=== PATIENT | female | born 2000 | race Caucasian/White ===

== ENCOUNTER 2022-03-16 13:35 | Emergency (ER) | payer OTHER ==
[2022-03-16] MEDS ORDERED: ROCURONIUM 50 MG/5 ML VIAL IV ONE (13:36)
[2022-03-16] MEDS ORDERED: NA CHLORIDE 0.9% 1,000 ML ONE ×4 (14:26→19:23)
[2022-03-16 14:54] LABS: Urine Blood Trace-lysed (Negative); Urine Glucose Negative (Negative); Urine Protein 2+ (Negative); Urine Specific Gravity 1.025 (1.005-1.030); Urine pH 5.5 (5.0-7.0)
[2022-03-16 14:55] LABS: Protime INR 1.26
[2022-03-16 15:09] LABS: Barbiturates NEGATIVE (NEGATIVE); Benzodiazepines NEGATIVE (NEGATIVE); Cocaine NEGATIVE (NEGATIVE); METHAMPHETAM NEGATIVE (NEGATIVE); Methadone NEGATIVE (NEGATIVE); Opiates NEGATIVE (NEGATIVE); Phencyclidine NEGATIVE (NEGATIVE); THC Cannibis POSITIVE (NEGATIVE)
[2022-03-16] MEDS ORDERED: ALBUTEROL 2.5 MG/3 ML NEB SOL ONE (15:09)
[2022-03-16] MEDS ORDERED: IPRATROPIUM BROM 0.5MG/2.5ML ONE (15:09)
--- NOTE | 2022-03-16 15:12 | RAD REPORT ---
EXAM DESCRIPTION: RAD - Chest Single View - 03/16/2022 2:48 pm CLINICAL HISTORY: DYSPNEA COMPARISON: None TECHNIQUE: AP portable chest image was obtained 03/16/2022 2:48 pm . FINDINGS: Dense opacification of the mid and lower right lung field is present obscuring the hemidia phragm and right heart border. Large right pleural effusion is present. There could be mass, consolid ation or a combination. Consolidation in the mid and lower left lung field is present as well. Heart and vasculature are normal. No pneumothorax. No acute bony abnormality seen. No acute aortic fi ndings suspected. IMPRESSION: Dense opacification of the lower right lung field probably a combination of consolidated pneumonia and large pleural effusion. Underlying mass lesion would not be likely in a patient this a ge. Prominent mid and lower left lung field opacification likely pneumonia.
[2022-03-16 15:33] LABS: Albumin 1.7 g/dL (3.4-5.0); Bilirubin Direct 2.1 mg/dL (0-0.2); Bilirubin Total 2.5 mg/dL (0.2-1.0); Potassium 3.3 mmol/L (3.5-5.1); Protein, Total 5.1 g/dL (6.4-8.2)
[2022-03-16 15:43] LABS: SARS-COV-2 RT PCR NEGATIVE (NEGATIVE)
[2022-03-16] MEDS ORDERED: VANCOMYCIN 1 GM/VIAL ONE (15:47)
[2022-03-16] MEDS ORDERED: PIPERACIL/TAZO 3.375 GM VIAL IV ONE (15:47)
[2022-03-16] MEDS ORDERED: NA CHLORIDE 0.9% 250 ML ONE (15:47)
[2022-03-16] MEDS ORDERED: NA CHLORIDE 0.9% 100 ML IV ONE (15:47)
[2022-03-16 16:13] LABS: Absolute Lymphocytes (CBC) 0.8 K/uL (0.7-4.9); Hematocrit 37.2 % (36.0-45.0); Lymphocytes % 12.1 % (15.3-44.8); MCV 84.7 fL (80-100); RBC Red Blood Cell Count 4.39 M/uL (3.86-4.86)
[2022-03-16 16:17] LABS: Blood Morphology Comment NOT SEEN (NOT SEEN); Platelet Estimate DECR; White Blood Cell Scan OK (OK)
[2022-03-16] MEDS ORDERED: RSI MEDICATION KIT IV ONE (16:22)
[2022-03-16] MEDS ORDERED: MIDAZOLAM HCL 2 MG/2 ML INJ ONE ×3 (16:28→19:17)
--- NOTE | 2022-03-16 17:09 | EDPHYS ---
Physician Documentation [facility] Name: Laure Leahy Age: 21 yrs Sex: Female : 2000 Arrival Date: 03/16/2022 Time: 13:36 Bed 4 Private MD: ED Physician Maurice Dickey HPI: 03/16 13:54 This 21 yrs old Female presents to ER via Wheelchair with complaints of Weakness, kb Dehydration, Cough. 13:55 The patient or guardian reports cough, difficulty breathing, flu symptoms, low-grade kb fever. Onset: The symptoms/episode began/occurred 2 week(s) ago. Severity of symptoms: At their worst the symptoms were moderate, in the emergency department the symptoms are unchanged. Modifying factors: The symptoms are alleviated by nothing, the symptoms are aggravated by nothing. Associated signs and symptoms: Pertinent positives: fever. The patient has not experienced similar symptoms in the past. The patient has not recently seen a physician. Boyfriend reports pt has been complaining of cough, shortness of breath, right lung pain and not acting herself since she stopped using meth 2 weeks ago. . Historical: - Allergies: 13:49 No Known Allergies; ld1 - Home Meds: 13:49 None [Active]; ld1 - PMHx: 13:49 None; ld1 - PSHx: 13:49 None; ld1 - Immunization history:: Adult Immunizations up to date, Client reports receiving the 2nd dose of the Covid vaccine. - Social history:: Smoking status: Patient denies any tobacco usage or history of. Patient uses street drugs, Methamphetamine (Meth) Patient/guardian denies using alcohol. ROS: 13:56 Cardiovascular: Negative for chest pain, palpitations, and edema. kb 13:56 Constitutional: Positive for fever. 13:56 Respiratory: Positive for cough, shortness of breath. 13:56 Neuro: Positive for weakness. 13:56 All other systems are negative. Exam: 13:57 Head/Face: Normocephalic, atraumatic. Cardiovascular: Regular rate and rhythm with a kb normal S1 and S2. No gallops, murmurs, or rubs. No pulse deficits. Abdomen/GI: Soft, non-tender. No distention Skin: Warm, dry with normal turgor. Normal color. MS/ Extremity: Pulses equal, no cyanosis. Neurovascular intact. Full, normal range of motion. Neuro: Awake and alert, GCS 15, oriented to person, place, time, and situation. Moves all extremities. 13:57 Respiratory: the patient does not display signs of respiratory distress, Respirations: normal, Breath sounds: decreased breath sounds, that are moderate, are heard in the right lower lobe and right posterior lower lobe. 14:28 ECG was reviewed by the Attending Physician. kb 15:57 Constitutional: The patient appears alert, awake, unkempt. kb 15:57 ENT: Mouth: Oral mucosa: dry. Vital Signs: 13:38 BP 88 / 50; Pulse 120; Resp 32; Pulse Ox 86% on Venturi mask; mb9 13:46 BP 87 / 59; Pulse 110; Resp 26; Temp 98.3(O); Pulse Ox 99% on R/A; Weight 43.09 kg; ld1 Height 5 ft. 3 in. (160.02 cm); Pain 7/10; 14:08 BP 88 / 45; Pulse 110; Resp 32; Pulse Ox 79% on 15% Venturi mask; mb9 14:15 BP 86 / 52; Pulse 121; Resp 34; Pulse Ox 99% on Venturi mask; mb9 14:45 BP 131 / 51; Pulse 118; Resp 30; Pulse Ox 84% on 6 lpm NC; mb9 14:48 BP 131 / 51; Pulse 118; Resp 32; Pulse Ox 95% on 50% Venturi mask; mb9 15:00 BP 114 / 83; Pulse 114; Resp 34; Pulse Ox 89% on Venturi mask; mb9 15:50 BP 108 / 70; Pulse 117; Resp 27; Pulse Ox 94% on 4 lpm NC; mb9 16:03 BP 108 / 70; Pulse 120; Resp 32; Pulse Ox 100% on 5 lpm NC; mb9 16:30 BP 105 / 49; Pulse 106; Resp 15; Pulse Ox 96% on 100% BVM; ph 17:00 BP 034 / 7; Pulse 109; Resp 20; Pulse Ox 88% on 100% FiO2 ETT vent; ph 17:30 BP 97 / 47; Pulse 117; Resp 20; Pulse Ox 94% on 100% FiO2 ETT vent; ph 18:00 BP 108 / 68; Pulse 108; Resp 20; Pulse Ox 94% on 100% FiO2 ETT vent; ph 18:29 BP 112 / 63; Pulse 112; Resp 18; Temp 97.4; Pulse Ox 91% on 100% FiO2 ETT vent; ph 18:30 BP 107 / 63; Pulse 112; Resp 20; Pulse Ox 92% on 100% FiO2 ETT vent; ph 19:00 BP 104 / 60; Pulse 115; Resp 20; Pulse Ox 95% on 100% FiO2 ETT vent; ph 19:30 BP 96 / 53; Pulse 122; Resp 20; Pulse Ox 96% on 100% FiO2 ETT vent; ph 13:46 Body Mass Index 16.83 (43.09 kg, 160.02 cm) ld1 Procedures: 17:05 Intubation: Ventilated with 100% NRB prior to procedure. O2 saturation prior to ragini procedure was 97 %. Intubated orally using # 4 Kimo blade with 7.5 mm ETT. Successful on second attempt. Ventilated with Ambu bag. Tube secured at right side of mouth measured 23 cm at lip. Placement verified by CXR, CO2 detector with (+) color change, auscultating bilateral breath sounds, Patient tolerated well. Central Line: the site was prepped with Betadine, in sterile fashion, a triple lumen catheter was inserted, in the right femoral vein, in 2 attempts. placement was verified, by blood return, the site was dressed with using sterile technique, the patient tolerated the procedure, well. MDM: 13:39 Patient medically screened. kb 16:24 Data reviewed: vital signs, nurses notes. Data interpreted: Pulse oximetry: on room air kb is 85 %. Interpretation: hypoxia. Plan: O2 by NC applied. Transition of care: After a detail discussion of the patient's case, care is transferred to Maurice Dickey MD. 03/16 13:44 Order name: Acetaminophen; Complete Time: 16:04 kb 03/16 13:44 Order name: Basic Metabolic Panel; Complete Time: 16:04 kb 03/16 13:44 Order name: CBC with Diff; Complete Time: 16:18 kb 03/16 13:44 Order name: ETOH Level; Complete Time: 15:26 kb 03/16 13:44 Order name: Hepatic Function; Complete Time: 16:04 kb 03/16 13:44 Order name: PT-INR; Complete Time: 14:56 kb 03/16 13:44 Order name: Ptt, Activated; Complete Time: 14:56 kb 03/16 13:44 Order name: Salicylate; Complete Time: 16:22 kb 03/16 13:44 Order name: Urine Drug Screen; Complete Time: 15:19 kb 03/16 13:44 Order name: COVID-19/FLU A+B; Complete Time: 15:44 kb 03/16 14:43 Order name: Glucose, Ancillary Testing; Complete Time: 14:46 EDMS 03/16 14:49 Order name: Blood Culture Adult (2) 03/16 14:49 Order name: Lactate w/ 2H reflex if indic.; Complete Time: 17:43 kb 03/16 14:54 Order name: Urine Dipstick-Ancillary; Complete Time: 14:56 EDMS 03/16 13:44 Order name: Chest Single View XRAY; Complete Time: 15:19 kb 03/16 15:19 Order name: ABG 03/16 16:16 Order name: CT Chest, Abdomen, Pelvis - W/Contrast [facility] 03/16 16:18 Order name: CBC Smear Scan; Complete Time: 16:18 EDMS 03/16 16:18 Order name: CT Head Brain wo Cont [facility] 03/16 16:38 Order name: CXR XRAY; Complete Time: 18:26 iw 03/16 17:14 Order name: ABG; Complete Time: 17:43 [facility] 03/16 13:44 Order name: EKG; Complete Time: 13:45 kb 03/16 13:44 Order name: IV Saline Lock; Complete Time: 16:10 kb 03/16 13:44 Order name: Labs collected and sent; Complete Time: 16:10 kb 03/16 13:44 Order name: Urine Dipstick-Ancillary (obtain specimen); Complete Time: 16:10 kb 03/16 16:03 Order name: Labs - recollect needed: recollect the recollect; Complete Time: 16:09 eb EC:28 Rate is 116 beats/min. Rhythm is regular. QRS Almond is Normal. IA interval is normal at kb 122 msec. QRS interval is normal at 98 msec. QT interval is normal at 464 msec. Administered Medications: 14:30 Drug: Versed (midazolam) 4 mg Route: IVP; Site: left wrist; ph 19:47 Follow up: Response: No adverse reaction ph 14:33 Drug: NS 0.9% 1000 ml Route: IV; Rate: 1000 ml; Site: left wrist; db 15:00 Follow up: Response: No adverse reaction; IV Status: Completed infusion; IV Intake: mb9 1000ml 15:00 Drug: NS 0.9% (30 ml/kg) 30 ml/kg Route: IV; Rate: bolus; Site: left wrist; mb9 17:00 Follow up: Response: No adverse reaction; IV Status: Completed infusion ph 15:40 Drug: DuoNeb (albuterol 2.5 mg, ipratropium 0.5 mg) (3:1) (2.5 mg - 0.5 mg) 3 ml Route: iw Nebulizer; 16:25 Follow up: Response: No adverse reaction mb9 15:55 Drug: Zosyn (piperacillin-tazobactam) 3.375 grams Route: IVPB; Infused Over: 60 mins; mb9 Site: right wrist; 17:00 Follow up: Response: No adverse reaction; IV Status: Completed infusion ph 16:18 CANCELLED (Duplicate Order): Pepcid (famotidine) 20 mg IVP once; dilute with 10 mL 0.9% ragini NaCl; give over 2 minutes 16:32 Drug: Etomidate 15 mg Route: IVP; Site: left wrist; ph 19:47 Follow up: Response: No adverse reaction ph 16:34 Drug: Succinylcholine 50 mg Route: IVP; Site: left wrist; ph 19:47 Follow up: Response: No adverse reaction ph 17:00 Drug: Midazolam 4 mg Route: IVP; Site: left wrist; ph 19:47 Follow up: Response: No adverse reaction; Patient is sedated ph 17:00 Drug: NS 0.9% 1000 ml Route: IV; Rate: 1000 ml; Site: right femoral; ph 18:00 Follow up: Response: No adverse reaction; IV Status: Completed infusion; IV Intake: ph 1000ml 17:45 Drug: vancoMYCIN 1 grams Route: IVPB; Infused Over: 2 hrs; Site: right femoral; ph 19:48 Follow up: Response: No adverse reaction; IV Status: Completed infusion ph 19:15 Drug: Midazolam 4 mg Route: IVP; Site: right femoral; ph 19:46 Follow up: Response: No adverse reaction; RASS: Moderate sedation (-3) ph 19:20 Drug: Rocuronium 25 mg Route: IVP; Site: right femoral; ph 19:46 Follow up: Response: No adverse reaction ph 19:44 Not Given (Other Intervention Used): ProTONIX (pantoprazole) 40 mg IVP once ph 19:44 Not Given (Other Intervention Used): Potassium Chloride 20 mEq IV at per protocol once; ph administer over 1-2 hours Disposition: 17:11 Co-signature as Attending Physician, Maurice Dickey MD I agree with the assessment and ragini plan of care. Disposition Summary: 03/16/22 17:08 Transfer Ordered Transfer Location: [facility] ragini Reason: Higher level of care ragini Condition: Stable ragini Problem: new ragini Symptoms: have improved ragini Accepting Physician: [facility] ICU(03/16/22 20:01) bb Diagnosis - Pneumonia due to other specified bacteria - BILATERAL ragini - Abuse of other non-psychoactive substances ragini - Hypoxemia ragini - Altered mental status, unspecified ragini - Tachycardia, unspecified ragini - Acute respiratory failure with hypercapnia ragini - Acute respiratory failure with hypoxia ragini Forms: - Medication Reconciliation Form ragini - SBAR form ragini Signatures: Dispatcher [employer] EDMS Elsie Garrett, SOO-[employer]-Maurice Davidson MD MD cha Mickail, Joel, PA PA jmm Ballard, Brenda RN Jyoti Marie, RN Abbie Kat RN Ling Abraham ph, Lauren RN RN ld1 Анна Lechuga, RN Kaitlin Toscano RN RN mb9 Corrections: (The following items were deleted from the chart) 15:58 13:57 Constitutional: This is a well developed, well nourished patient who is awake, kb alert, and in no acute distress. Head/Face: Normocephalic, atraumatic. ENT: Moist Mucous membranes Cardiovascular: Regular rate and rhythm with a normal S1 and S2. No gallops, murmurs, or rubs. No pulse deficits. Abdomen/GI: Soft, non-tender. No distention Skin: Warm, dry with normal turgor. Normal color. MS/ Extremity: Pulses equal, no cyanosis. Neurovascular intact. Full, normal range of motion. Neuro: Awake and alert, GCS 15, oriented to person, place, time, and situation. Moves all extremities. Normal gait. kb 16:18 16:15 Pepcid (famotidine) 20 mg IVP once; dilute with 10 mL 0.9% NaCl; give over 2 ragini minutes ordered. [facility] 16:24 13:57 Respiratory: the patient does not display signs of respiratory distress, kb Respirations: normal, Breath sounds: decreased breath sounds, that are mild, are heard in the right lower lobe and right posterior lower lobe, kb 17:45 14:53 Chest For PE Angio+CT.RAD.BRZ ordered. EDMS EDMS 20:01 17:08 [facility]
--- NOTE | 2022-03-16 17:09 | ER ---
Nurse's Notes [facility] Name: Laure Leahy Age: 21 yrs Sex: Female : 2000 Arrival Date: 03/16/2022 Time: 13:36 Bed 4 Private MD: Diagnosis: Pneumonia due to other specified bacteria-BILATERAL;Abuse of other non-psychoactive substances;Hypoxemia;Altered mental status, unspecified;Tachycardia, unspecified;Acute respiratory failure with hypercapnia;Acute respiratory failure with hypoxia Presentation: 03/16 13:46 Chief complaint: Patient states: Reports fatigue, weakness, RUQ pain X 2 weeks. Pt ld1 reports methamphetamine use - "quit two weeks ago.". Coronavirus screen: At this time, the client does not indicate any symptoms associated with coronavirus-19. Ebola Screen: No symptoms or risks identified at this time. Initial Sepsis Screen: Does the patient meet any 2 criteria? No. Patient's initial sepsis screen is negative. Does the patient have a suspected source of infection? No. Patient's initial sepsis screen is negative. Risk Assessment: Do you want to hurt yourself or someone else? Patient reports no desire to harm self or others. Onset of symptoms was March 16, 2022. 13:46 Method Of Arrival: Wheelchair ld1 13:46 Acuity: ISAURA 3 ld1 14:49 Acuity: ISAURA 2 iw Triage Assessment: 13:49 General: Appears in no apparent distress. uncomfortable, Behavior is agitated, anxious, ld1 fussy, inappropriate for age. Pain: Complains of pain in abdomen Pain does not radiate. Pain currently is 7 out of 10 on a pain scale. Quality of pain is described as throbbing. EENT: No signs and/or symptoms were reported regarding the EENT system. Neuro: Level of Consciousness is awake, alert, obeys commands, Oriented to person, place, time, situation, Appropriate for age. Cardiovascular: Capillary refill < 3 seconds Patient's skin is warm and dry. Rhythm is sinus tachycardia. Respiratory: Airway is patent Respiratory effort is even, labored. GI: Abdomen is flat, non-distended. : No signs and/or symptoms were reported regarding the genitourinary system. Derm: No signs and/or symptoms reported regarding the dermatologic system. Musculoskeletal: No signs and/or symptoms reported regarding the musculoskeletal system. Historical: - Allergies: 13:49 No Known Allergies; ld1 - Home Meds: 13:49 None [Active]; ld1 - PMHx: 13:49 None; ld1 - PSHx: 13:49 None; ld1 - Immunization history:: Adult Immunizations up to date, Client reports receiving the 2nd dose of the Covid vaccine. - Social history:: Smoking status: Patient denies any tobacco usage or history of. Patient uses street drugs, Methamphetamine (Meth) Patient/guardian denies using alcohol. Screenin:00 Abuse screen: unable to assess. Nutritional screening: Difficulty chewing/swallowing? mb9 Yes. Tuberculosis screening: No symptoms or risk factors identified. The patient is unable to swallow own secretions without drooling or the need for suction. Bedside swallow screening discontinued. Patient kept NPO until cleared by Speech Therapy or Physician. Fall Risk None identified. No fall in past 12 months (0 pts). No secondary diagnosis (0 pts). IV access (20 points). Ambulatory Aid- None/Bed Rest/Nurse Assist (0 pts). Gait- Weak (10 pts.). Mental Status- Overestimates/Forgets Limitations (15 pts.). Total Johnson Fall Scale indicates High Risk Score (45 or more points). Fall prevention measures have been instituted. Side Rails Up X 2 Placed Close to Nursing Station. Assessment: 14:00 Respiratory: Reports shortness of breath cough that is Airway is patent Respiratory mb9 effort is labored, Respiratory pattern is regular, Breath sounds are coarse the patient has severe shortness of breath. GI: Abdomen is flat, non-distended. : Urine is clear. EENT: No deficits noted. No signs and/or symptoms were reported regarding the EENT system. 15:00 Reassessment: Patient appears in no apparent distress at this time. Patient and/or mb9 family updated on plan of care and expected duration. Pain level reassessed. Patient is alert, oriented x 3, equal unlabored respirations, skin warm/dry/pink. 16:10 Reassessment: patient with low O2. cough dehydration not tolerating fluids. failed mb9 swallow. General: Appears distressed, uncomfortable, unkempt. Pain: Complains of pain in back. Neuro: Level of Consciousness is awake, obeys commands, confused. Neuro: Oriented to person. Cardiovascular:. 16:15 Reassessment: Received pt in ER trauma room 4 from bed 15, noted to be restless w/ AMS, ph room air Spo2 74%, placed on NRB mask, RT at bedside preparing for intubation. 16:15 General: Appears distressed, uncomfortable, unkempt, Behavior is restless. Pain: ph Complains of pain in back and abdomen. Neuro: Level of Consciousness is awake, obeys commands, confused, Oriented to person. Respiratory: Reports shortness of breath Airway is patent Respiratory effort is labored, Respiratory pattern is tachypnea Breath sounds are coarse bilaterally. the patient has severe shortness of breath. GI: Abdomen is round non-distended. : Stephens in place to gravity drainage. Derm: Skin is pale, Skin temperature is cool. Musculoskeletal: Circulation, motion, and sensation intact. Range of motion: intact in all extremities. 18:15 Reassessment: Accompanied pt to CT. ph 18:45 Reassessment: Report called to Miko UMANA at [facility], awaiting EMS for ph transport. 19:25 Reassessment: [facility] at bedside, preparing pt for transport. ph Vital Signs: 13:38 BP 88 / 50; Pulse 120; Resp 32; Pulse Ox 86% on Venturi mask; mb9 13:46 BP 87 / 59; Pulse 110; Resp 26; Temp 98.3(O); Pulse Ox 99% on R/A; Weight 43.09 kg; ld1 Height 5 ft. 3 in. (160.02 cm); Pain 7/10; 14:08 BP 88 / 45; Pulse 110; Resp 32; Pulse Ox 79% on 15% Venturi mask; mb9 14:15 BP 86 / 52; Pulse 121; Resp 34; Pulse Ox 99% on Venturi mask; mb9 14:45 BP 131 / 51; Pulse 118; Resp 30; Pulse Ox 84% on 6 lpm NC; mb9 14:48 BP 131 / 51; Pulse 118; Resp 32; Pulse Ox 95% on 50% Venturi mask; mb9 15:00 BP 114 / 83; Pulse 114; Resp 34; Pulse Ox 89% on Venturi mask; mb9 15:50 BP 108 / 70; Pulse 117; Resp 27; Pulse Ox 94% on 4 lpm NC; mb9 16:03 BP 108 / 70; Pulse 120; Resp 32; Pulse Ox 100% on 5 lpm NC; mb9 16:30 BP 105 / 49; Pulse 106; Resp 15; Pulse Ox 96% on 100% BVM; ph 17:00 BP 034 / 7; Pulse 109; Resp 20; Pulse Ox 88% on 100% FiO2 ETT vent; ph 17:30 BP 97 / 47; Pulse 117; Resp 20; Pulse Ox 94% on 100% FiO2 ETT vent; ph 18:00 BP 108 / 68; Pulse 108; Resp 20; Pulse Ox 94% on 100% FiO2 ETT vent; ph 18:29 BP 112 / 63; Pulse 112; Resp 18; Temp 97.4; Pulse Ox 91% on 100% FiO2 ETT vent; ph 18:30 BP 107 / 63; Pulse 112; Resp 20; Pulse Ox 92% on 100% FiO2 ETT vent; ph 19:00 BP 104 / 60; Pulse 115; Resp 20; Pulse Ox 95% on 100% FiO2 ETT vent; ph 19:30 BP 96 / 53; Pulse 122; Resp 20; Pulse Ox 96% on 100% FiO2 ETT vent; ph 13:46 Body Mass Index 16.83 (43.09 kg, 160.02 cm) ld1 ED Course: 13:36 Patient arrived in ED. mr 13:37 [facility] Garrett[facility] kb 13:37 Maurice Dickey MD is Attending Physician. kb 13:49 Triage completed. ld1 13:49 Arm band placed on right wrist. ld1 14:18 Анна Lechuga, RN is Primary Nurse. db 14:30 Oxygen administration via nasal cannula \\T\\ 4L/min Response to oxygen therapy: symptoms mb9 improved. 14:50 Chest Single View XRAY In Process Unspecified. EDMS 14:56 Straight cath inserted, using sterile technique, 16 Fr. Specimen obtained. mb9 15:00 Client placed on continuous cardiac and pulse oximetry monitoring. NIBP monitoring mb9 applied. Warm blanket given. 15:30 Placed in gown. Bed in low position. Call light in reach. Side rails up X2. mb9 15:30 Inserted saline lock: 22 gauge in left wrist, using aseptic technique. mb9 16:08 Stephens cath inserted, using sterile technique, 16 Fr., by il, balloon inflated, to mb9 gravity drainage, urine specimen collected. 16:09 Inserted saline lock: 22 gauge in right wrist, using aseptic technique. mb9 16:21 attempted to contact patient's "kassandra" Kenna Leahy at [phone]/ left message for her eb to please call the ER. 16:27 Report given to PJ. mb9 16:34 Assisted provider with intubation using 7.5 mm ETT via oral route. ET tube secured at ph 23cm at the lips. Set up intubation tray. Intubated by Maurice Dickey MD Placement verified by CO2 detector w/ + color change, auscultating bilateral breath sounds, Patient tolerated well. 16:[address] Dickey to discuss patient's status. eb 16:40 NGT: inserted 14 Fr. other via oral route verified placement of air over stomach, ph verified return of gastric contents, to intermittent suction. Returned gastric contents. Patient tolerated well. Patient transferred, IV remains in place. 16:55 Assisted provider with central line placement. Set up central line tray. Triple lumen ph line placed in right femoral. Line placed by Maurice Dickey MD Placement verified by CXR, blood return, Dressed with Tegaderm, Blood was collected. Patient tolerated well. Before procedure, did Practitioner(s) obtain informed consent? No. Patient \\T\\ family education about procedure, CLABSI prevention and S/S of infection? No. Time-out/Briefing performed prior to start of procedure? Yes. Was handwashing/sanitizing done immediately prior to procedure? Yes. Was patient positioned to in a way to prevent air embolism? Yes. Was procedure site sterilized? Yes, with chlorhexidine. Was the site allowed to dry? Was local anesthetic and/or sedation utilized? Yes. During the procedure, did the Practitioner(s) maintain a sterile field? Yes. Were unused ports clamped during insertion? Yes. Was a 2nd qualified MD obtained after 3 unsuccessful insertion attempts? N/A. Was blood aspirated from each lumen? Yes. After the procedure, did the Practitioner(s) clean the site and apply a sterile dressing? Yes. 17:07 intiated a transfer Ling Cadena from the [facility]/. eb 17:47 connected the REPORT CLERK and Hospitalist mrp controller for [facility] with Dr. Dickey for eb patient transfer consultation. 18:02 CXR XRAY In Process Unspecified. EDMS 18:06 administrative approval given by Ling Cadena/ patient has been accepted to [facility] and ICU room will be given to flight crew once they contact the housecalls nurse/ Dr. Cris Lopez has accepted the patient in transfer / report to be called through the transfer center at [phone]. 18:16 CT Head Brain wo Cont In Process Unspecified. EDMS 18:25 CT Chest, Abdomen, Pelvis - W/Contrast In Process Unspecified. EDMS 18:29 called Kenna patient's grandmother to update her on the patient transfer/ She says she eb will call [facility] tomorrow to get an update on her status. 18:57 Primary Nurse role handed off by Анна Lechuga RN ph 18:57 Abbie Tomas RN is Primary Nurse. ph 19:27 Primary Nurse role handed off by Abbie Tomas RN eb 19:39 Abbie Tomas RN is Primary Nurse. ph Administered Medications: 14:30 Drug: Versed (midazolam) 4 mg Route: IVP; Site: left wrist; ph 19:47 Follow up: Response: No adverse reaction ph 14:33 Drug: NS 0.9% 1000 ml Route: IV; Rate: 1000 ml; Site: left wrist; db 15:00 Follow up: Response: No adverse reaction; IV Status: Completed infusion; IV Intake: mb9 1000ml 15:00 Drug: NS 0.9% (30 ml/kg) 30 ml/kg Route: IV; Rate: bolus; Site: left wrist; mb9 17:00 Follow up: Response: No adverse reaction; IV Status: Completed infusion ph 15:40 Drug: DuoNeb (albuterol 2.5 mg, ipratropium 0.5 mg) (3:1) (2.5 mg - 0.5 mg) 3 ml Route: iw Nebulizer; 16:25 Follow up: Response: No adverse reaction mb9 15:55 Drug: Zosyn (piperacillin-tazobactam) 3.375 grams Route: IVPB; Infused Over: 60 mins; mb9 Site: right wrist; 17:00 Follow up: Response: No adverse reaction; IV Status: Completed infusion ph 16:18 CANCELLED (Duplicate Order): Pepcid (famotidine) 20 mg IVP once; dilute with 10 mL 0.9% ragini NaCl; give over 2 minutes 16:32 Drug: Etomidate 15 mg Route: IVP; Site: left wrist; ph 19:47 Follow up: Response: No adverse reaction ph 16:34 Drug: Succinylcholine 50 mg Route: IVP; Site: left wrist; ph 19:47 Follow up: Response: No adverse reaction ph 17:00 Drug: Midazolam 4 mg Route: IVP; Site: left wrist; ph 19:47 Follow up: Response: No adverse reaction; Patient is sedated ph 17:00 Drug: NS 0.9% 1000 ml Route: IV; Rate: 1000 ml; Site: right femoral; ph 18:00 Follow up: Response: No adverse reaction; IV Status: Completed infusion; IV Intake: ph 1000ml 17:45 Drug: vancoMYCIN 1 grams Route: IVPB; Infused Over: 2 hrs; Site: right femoral; ph 19:48 Follow up: Response: No adverse reaction; IV Status: Completed infusion ph 19:15 Drug: Midazolam 4 mg Route: IVP; Site: right femoral; ph 19:46 Follow up: Response: No adverse reaction; RASS: Moderate sedation (-3) ph 19:20 Drug: Rocuronium 25 mg Route: IVP; Site: right femoral; ph 19:46 Follow up: Response: No adverse reaction ph 19:44 Not Given (Other Intervention Used): ProTONIX (pantoprazole) 40 mg IVP once ph 19:44 Not Given (Other Intervention Used): Potassium Chloride 20 mEq IV at per protocol once; ph administer over 1-2 hours Medication: 19:52 VIS not applicable for this client. ph Intake: 15:00 IV: 1000ml; Total: 1000ml. mb9 18:00 IV: 1000ml; Total: 2000ml. ph Outcome: 17:08 ER care complete, transfer ordered by MD. eid 19:56 Transferred by [facility] [place]. to [facility], Transfer form ph completed. X-rays sent w/ patient. 19:56 Condition: stable 19:56 Instructed on the need for transfer. 20:01 Patient left the ED. bb Signatures: Dispatcher [employer] EDSC Elsie Garrett FNP-C FNP-Andre Maurice Dickey MD MD cha Rivera, Kaitlin mr Miller, Vandana, RN RN tima Chowdary, Jyoti, RN RN Abbie Hou, RN RN Ling Vazquez Lauren, RN RN ld1 Анна Lechuga, RN RN db Jackelyn, Kaitlin Griffin, RN RN mb9
[2022-03-16 17:24] LABS: Arterial Blood Carboxyhemoglob 0.8 % (0-1.5); Blood Gas Oxyhemoglobin 89.9 % (94-97); Blood O2 Saturation 91.7 % (92-98.5)
--- NOTE | 2022-03-16 18:08 | RAD REPORT ---
EXAM DESCRIPTION: RAD - Chest Single View - 03/16/2022 6:00 pm CLINICAL HISTORY: post intubation COMPARISON: Portable March 16 TECHNIQUE: AP portable chest image was obtained 03/16/2022 6:00 pm in supine position. FINDINGS: Endotracheal tube has been placed. Tip is top of the aortic arch 5 cm charlie. This is adeq uate positioning. NG tube is in place extending below the diaphragm into the left upper abdomen. The right-sided pleural effusion with consolidated mass or infiltrate in the lower right lung field a gain noted. Dense airspace opacification in the left lung field again noted. No cavitation seen on pl ain film. Heart size and upper lobe vasculature are normal range and stable. No pneumothorax. No acute bony abnormality seen. No acute aortic findings suspected. IMPRESSION: Placement of ET tube and NG tube in satisfactory position. Extensive right-side pleural and parenchymal opacification and left-side parenchymal opacification st able from earlier examination.
--- NOTE | 2022-03-16 18:26 | RAD REPORT ---
EXAM DESCRIPTION: CT - Head Brain Wo Cont - 03/16/2022 6:14 pm CLINICAL HISTORY: Mental status change, persistent or worsening COMPARISON: <Comparisons> TECHNIQUE: Axial 5 mm thick images of the head were obtained without IV contrast. All CT scans are performed using dose optimization technique as appropriate and may include automated exposure control or mA/KV adjustment according to patient size. FINDINGS: No intracranial hemorrhage, mass, edema or shift of mid-line structures. No acute infarcti on changes seen. No abnormal extra-axial fluid collections. Ventricles are normal. Mastoid air cells and visualized portions of the paranasal sinuses are clear. No acute bony findings. IMPRESSION: Negative non-contrast CT head examination.
[2022-03-16 18:32] LABS: Arterial Blood Carboxyhemoglob 0.3 % (0-1.5); Blood Gas Oxyhemoglobin 89.6 % (94-97); Blood O2 Saturation 90.2 % (92-98.5)
--- NOTE | 2022-03-16 18:44 | RAD REPORT ---
EXAM DESCRIPTION: CT - Chest Abdomen Pelvis W Cont - 03/16/2022 6:23 pm CLINICAL HISTORY: SEPSIS COMPARISON: Single View dated 03/16/2022 TECHNIQUE: Following dynamic enhancement using 100 milliliters nonionic IV contrast, axial imaging o f the chest, abdomen and pelvis was performed. Biphasic technique was utilized through the abdomen. Oral contrast: None. All CT scans are performed using dose optimization technique as appropriate and may include automated exposure control or mA/KV adjustment according to patient size. FINDINGS: There is extensive consolidation involving the entirety of the right lower lobe and right middle lobe. The airspace opacification expands the volume of the right lung field. Right upper lobe is partially aerated. There are areas of atelectasis in the far peripheral aspects of the right middl e and lower lobes. Moderate-sized to large sized pleural effusion is present on the right. No thicken ed or enhancing rind. No air in the pleural space. There is no soft tissue mass or cavitation within the aerated portion of the lung hauser. The enlarged, edematous right-sided lung parenchyma causes ex trinsic significant compression of the superior and inferior pulmonary veins. A large area of masslike consolidation is present in the midportion and lingula of the left upper lob e. There is a mixture of atelectasis and consolidation in the volume reduced left lower lobe. No left -sided cavitation or pleural effusion. No pneumothorax. No pleural based mass. The hyperexpansion of the consolidated right lung field causes right to left shift of the mediastinum . Bronchi beyond the lobar level opacified or compressed. . No significant aortic or pulmonary arteri al tree finding. Mediastinal and hilar regions show no mass or abnormal lymphadenopathy. No chest wal l mass or axillary lymphadenopathy. No focal liver lesions seen. Periportal edema is present which can be seen with diffuse systemic dise ase. No focal splenic abnormality. No pancreatic or peripancreatic acute finding. Gallbladder is posi tioned to the left of midline. The pleural effusion and hyperexpansion of the right lung tissue has m ass effect on the diaphragm displacing the liver inferiorly and to the left. Acute gallbladder proces s is not suspected. No abnormal biliary tree dilatation. Renal function is symmetric. An acute renal process is not seen. No adrenal abnormalities. Urinary b ladder is fully contracted around a Stephens catheter. No primary uterine or ovarian process suspected. No acute GI process seen. There is gas distention of the right-sided colon and transverse colon. No i ntraperitoneal free air. No acute GI findings seen. No acute or destructive bony process. No significant vascular findings. Endotracheal tube is in place. Tip terminates just above the aortic arch approximately 5 cm from the charlie. NG tube is in place extending into the lateral mid abdomen which is the far lateral aspect of the midbody stomach. IMPRESSION: Extensive airspace opacification filling and expanding the right lower lobe and right mi ddle lobe. Right upper lobe is partially aerated. There is no mass within lung parenchyma and no cavi tation. Moderate to large sized right pleural effusion without CT findings for empyema. The pleural fluid an expanded lung parenchyma causes right to left midline shift as well as mass effect displacing the rig ht hemidiaphragm and liver. Large area of consolidation in the mid and lingula portions of the left upper lobe. There is atelecta sis and consolidation filling the left lower lobe. No measurable left lower lobe aeration. Patient has only approximately 50% of the right upper lobe and 50% of the left upper lobe as aerated lung parenchyma. Endotracheal tube and NG tube are in satisfactory position. No significant findings in the abdomen or pelvis. Very extensive pneumonia is the most likely etiology.
[2022-03-16] MEDS ORDERED: LORazepam 2 MG/ML VIAL ONE (19:16)
[2022-03-16 20:46] VITALS: TEMP 97.4
[2022-03-16 20:50] VITALS: BP 96/53; O2SAT 96
--- NOTE | 2022-03-17 13:47 | EKG ---
Test Date: 2022-03-16 Test Time: 13:50:03 [employer] Worker: ANTON MEASUREMENT RESULTS: Intervals: Rate: 116 DC: 122 QRSD: 98 QT: 334 QTc: 464 Arnold: P: 75 DC: 122 QRS: 88 T: 30 INTERPRETIVE STATEMENTS: Sinus tachycardia Incomplete right bundle branch block Borderline ECG Compared to ECG 03/16/2022 13:49:16 Right-axis deviation no longer present Electronically Signed On 03-17-22 13:45:17 DEEP SUBMERGENCE VEHICLE OPERATOR by Emanuel Kay
== END 2022-03-16 20:01 | disposition short-term general hospital (02) ==
LOC: ER 13:35
DX: J15.8 Pneumonia due to other specified bacteria (principal); J96.02 Acute respiratory failure with hypercapnia; J96.01 Acute respiratory failure with hypoxia; F55.8 Abuse of other non-psychoactive substances; R00.0 Tachycardia, unspecified; Z20.822 Contact with and (suspected) exposure to COVID-19
CPT/HCPCS: 93005; 87040 ×2; 85025; 80048; 36415; 80320; 87205 ×2; 80329 ×2; 85610; 82947; 80076; 83605; 85730; 81003; 0240U; 80307; 70450; 71260; 74177; 71045 ×2; 94002; 94640; 82805 ×2; 31500; 51702 ×2; 99291; Q9967 ×2; J2543; J7613; J7644; J2250 ×3; J3370; J7050; J7030 ×4